=== PATIENT | female | born 1990 | race Caucasian/White ===

== ENCOUNTER 2018-08-20 00:13 | Emergency (ER) | payer MEDICAID ==
[~2018-08-20] VITALS: Ht 160 cm; Wt 62.1 kg
[2018-08-20 00:20] VITALS: BP_SYST 112
--- NOTE | 2018-08-20 00:20 | NUR ---
Patient to ER bed 8 to gown for evaluation. Side rails up.
--- NOTE | 2018-08-20 00:25 | NUR ---
Patient to ER via triage with c/o lower abdominal cramping since 1900. Patient also reports mild vaginal bleeding. Patient is G-2, P-1 with LMP of 03/2018. Patient is awake, alert and oriented in no acute distress, vital signs stable, respirations even and unlabored, skin warm and dry to touch. Awaiting evaluation by ER MD, will continue to observe and assess. Patient able to ambulate to bed 8 with slow, steady gait without difficulty.
--- NOTE | 2018-08-20 00:30 | NUR ---
Patient to ultrasound via wheelchair in stable condition.
--- NOTE | 2018-08-20 01:00 | NUR ---
Dr Lubin at bedside to evaluate patient, and to perform pelvic exam with Barb TERAN acting as pediatric critical care nurse.
[2018-08-20 01:39] LABS: BILIRUBIN,URINE NEGATIVE (NEGATIVE); BLOOD, URINE 2+ (NEGATIVE); CLARITY/URINE CLEAR (CLEAR); COLOR,URINE YELLOW (YELLOW); GLUCOSE,URINE NEGATIVE (NEGATIVE); KETONES,URINE NEGATIVE (NEGATIVE); LEUKOCYTE ESTERASE ,URINE NEGATIVE (NEGATIVE); NITRITE, URINE NEGATIVE (NEGATIVE); PROTEIN URINE TRACE (NEGATIVE)
[2018-08-20 01:49] LABS: BASOPHILS % (AUTO) 0.3 % (0.0-2.0); EOSINOPHILS # (AUTO) 0.2 K/uL (0.0-0.4); HEMATOCRIT 32.8 % (36-48); HEMOGLOBIN 11.1 g/dL (12.0-16.0); LYMPHOCYTES # (AUTO) 2.2 K/uL (1.0-5.5); LYMPHOCYTES % (AUTO) 27.1 % (20.5-51.5); MEAN CORPUSCULAR HEMOGLOBIN 29 pg (27-31); MEAN CORPUSCULAR HGB CONC 34 % (32-36); MEAN CORPUSCULAR VOLUME 86 fL (79.0-98.0); MONOCYTES # (AUTO) 0.5 K/uL (0.0-1.0); MONOCYTES % (AUTO) 6.4 % (1.7-9.3); NEUTROPHILS # (AUTO) 5.1 K/uL (1.8-7.7); NEUTROPHILS % (AUTO) 64.2 % (40.0-70.0); PLATELET COUNT (AUTO) 246 K/uL (130-430); RED CELL DISTRIBUTION WIDTH 12.4 % (9.0-15.0)
[2018-08-20 01:59] LABS: BACTERIA,URINE FEW /HPF (None Seen); MUCUS,URINE None Seen /LPF (None Seen); WBC,URINE 0-3 /HPF (0-3); YEAST,URINE None Seen /HPF (None Seen)
--- NOTE | 2018-08-20 02:00 | NUR ---
Patient resting quietly in no acute distress, awaiting lab results and dispo.
[2018-08-20 02:03] LABS: CALCIUM 8.9 mg/dL (8.4-11.0); CREATININE 0.56 mg/dL (0.55-1.30); POTASSIUM 3.4 mmol/L (3.5-5.1)
--- NOTE | 2018-08-20 02:10 | NUR ---
Dr Lubin at bedside speaking with patient regarding results and plan of care, questions answered by Dr Lubin.
[2018-08-20 02:15] VITALS: BP_SYST 110
--- NOTE | 2018-08-20 02:15 | NUR ---
Patient given written and verbal discharge instructions and verbalizes understanding. ER MD discussed with patient the results and treatment provided. Patient in stable condition. ID arm band removed. IV catheter removed intact and dressing applied, no active bleeding. No RX given. Patient educated on pain management and to follow up with PMD. Pain Scale 0. Opportunity for questions provided and answered. Patient left ER in no acute distress, ambulating without difficulty with slow, steady gait.
[2018-08-20 02:24] LABS: ALBUMIN 2.7 g/dL (3.4-4.8); TOTAL BILIRUBIN 0.2 mg/dL (0.0-1.0)
[2018-08-22 00:20] LABS: CHLAMYDIA TRACHOMATIS NAA Negative (Negative); NEISSERIA GONORRHOEAE NAA Negative (Negative)
== END 2018-08-20 02:15 | disposition home or self-care (01) ==
LOC: SED 00:13
DX: O20.0 Threatened abortion (principal); Z3A.19 19 weeks gestation of pregnancy
CPT/HCPCS: 36415; 76815; 80053; 81000-TC; 81025; 84702-TC; 85025; 86900; 86901; 87210-TC; 87491; 87591; 99285

== ENCOUNTER 2024-02-08 04:43 | Emergency (ER) | payer SELFPAY ==
[~2024-02-08] VITALS: Ht 160 cm; Wt 70.3 kg
[2024-02-08 04:55] VITALS: BP_SYST 120; PULSE 79; RESP 19; TEMP 97.7; O2SAT 99
[2024-02-08] MEDS ORDERED: IBUP-1969 PO (06:26)
[2024-02-08 07:18] VITALS: BP_SYST 120; PULSE 79; RESP 18; TEMP 97.7; O2SAT 99
[2024-02-08] MEDS: IBUPROFEN 800 MG TABLET PO ONE (07:19)
== END 2024-02-08 07:15 | disposition home or self-care (01) ==
LOC: SED 04:43
DX: S09.90XA Unspecified injury of head, initial encounter (principal); S19.9XXA Unspecified injury of neck, initial encounter; W10.8XXA Fall (on) (from) other stairs and steps, initial encounter; Y93.89 Activity, other specified; Y92.89 Other specified places as the place of occurrence of the external cause; Y99.8 Other external cause status
CPT/HCPCS: 70450-TC; 72040; 81025; 99284

== ENCOUNTER 2024-08-25 02:51 | Emergency (ER) | payer BC, OTHER ==
[~2024-08-25] VITALS: Ht 160 cm; Wt 70.3 kg
[~2024-08-25 02:51] MED LIST: IBUP-1969 PO
[2024-08-25 03:06] VITALS: BP_SYST 116; PULSE 101; RESP 20; TEMP 97.5; O2SAT 97
[2024-08-25] MEDS: NACL 0.9% 1,000 ML IV ONE (03:36)
[2024-08-25] MEDS: ONDANSETRON HCL 4 MG/2 ML VIAL IVP ONE (03:40)
[2024-08-25 04:01] LABS: BILIRUBIN,URINE 1+ (NEGATIVE); CLARITY/URINE SL CLOUDY (CLEAR); COLOR,URINE YELLOW (YELLOW); GLUCOSE,URINE NEGATIVE (NEGATIVE); KETONES,URINE NEGATIVE (NEGATIVE); LEUKOCYTE ESTERASE ,URINE NEGATIVE (NEGATIVE); NITRITE, URINE NEGATIVE (NEGATIVE); PH,URINE 5.5 (5.0-8.0); PROTEIN URINE 3+ (NEGATIVE); UROBILINOGEN,URINE 0.2 (0.2-1.0)
[2024-08-25 04:02] LABS: BASOPHILS % (AUTO) 0.2 % (0.0-2.0); EOSINOPHILS % (AUTO) 0.2 % (0.0-4.0); HEMATOCRIT 42.7 % (36-48); LYMPHOCYTES # (AUTO) 0.7 K/uL (1.0-5.5); LYMPHOCYTES % (AUTO) 5.9 % (20.5-51.5); MEAN CORPUSCULAR HEMOGLOBIN 27 pg (27-31); MEAN CORPUSCULAR HGB CONC 33 % (32-36); MEAN CORPUSCULAR VOLUME 82 fL (79.0-98.0); MONOCYTES # (AUTO) 0.4 K/uL (0.0-1.0); MONOCYTES % (AUTO) 3.7 % (1.7-9.3); NEUTROPHILS # (AUTO) 10.7 K/uL (1.8-7.7); PLATELET COUNT (AUTO) 315 K/uL (130-430); RED BLOOD CELL COUNT(AUTO) 5.24 MIL/uL (4.2-6.2); RED CELL DISTRIBUTION WIDTH 15.5 % (9.0-15.0); WHITE BLOOD COUNT (AUTO) 11.9 K/uL (4.8-10.8)
[2024-08-25 04:05] LABS: BLOOD, URINE TRACE (NEGATIVE)
[2024-08-25] MEDS ORDERED: ONDA-8 TL (04:13)
[2024-08-25] MEDS ORDERED: LOPE2CAP PO (04:13)
[2024-08-25 04:14] LABS: URINE SULFO SALICYLIC ACID NEGATIVE (NEGATIVE)
[2024-08-25 04:15] LABS: BACTERIA,URINE MODERATE /HPF (None Seen); HYALINE CASTS, URINE 0-10 /LPF (None Seen); WBC,URINE 0-3 /HPF (0-3)
[2024-08-25 04:18] LABS: ALBUMIN 4.7 g/dL (3.4-4.8); BILIRUBIN,DIRECT 0.1 mg/dL (0.0-0.3); CALCIUM 9.8 mg/dL (8.4-11.0); CREATININE 0.92 mg/dL (0.55-1.30); POTASSIUM 3.5 mmol/L (3.5-5.1); TOTAL BILIRUBIN 0.5 mg/dL (0.0-1.0); TOTAL PROTEIN, SERUM 9.5 g/dL (6.4-8.3)
[2024-08-25 04:55] VITALS: BP_SYST 116; PULSE 101; RESP 20; TEMP 97.5; O2SAT 97
== END 2024-08-25 04:55 | disposition home or self-care (01) ==
LOC: SED 02:51
DX: K52.9 Noninfective gastroenteritis and colitis, unspecified (principal); R11.2 Nausea with vomiting, unspecified
CPT/HCPCS: 99283; 96374; 80076; 80048; 81001; 83690; 85025; 36415; 81025; 81000; 81015; J2405; J7030